=== PATIENT | male | born 1970 | race Caucasian/White ===

== ENCOUNTER 2017-04-30 11:16 | Outpatient (CLI) | payer OTHER ==
[~2017-04-30] VITALS: Ht 185.4 cm; Wt 113.4 kg
[~2017-04-30 11:16] MED LIST: ANASTROZOLE1 MG PO; AVODART0.5 MG PO; FLOMAX0.4 MG PO
== END 2017-04-30 12:15 | disposition home or self-care (01) ==
LOC: D.OPS 11:16 → D.SDCHOLD 11:16 → D.OPS 11:16 → D.SDCHOLD 12:15 → D.PAN 12:50 → D.OPS 13:00 → D.PAN 13:00 → D.OPS 13:30 → EDSTATUS 13:30
DX: Z01.810 Encounter for preprocedural cardiovascular examination (principal); Z01.812 Encounter for preprocedural laboratory examination; Z01.811 Encounter for preprocedural respiratory examination; Z53.9 Procedure and treatment not carried out, unspecified reason

== ENCOUNTER 2017-05-11 08:17 | Day surgery (SDC) | payer OTHER ==
[~2017-05-11] VITALS: Ht 185.4 cm; Wt 113.4 kg
--- NOTE | ~2017-05-11 | OP ---
PATIENT NAME: COREY NGUYEN MEDICAL RECORD: [id number] :72 LOCATION:[facility] ADMISSION DATE: SURGEON: CAMRON LUQUE DO DATE OF OPERATION: 05/11/2017 PROCEDURE PERFORMED: Left elbow common extensor tendon repair. PREOPERATIVE DIAGNOSIS: Left elbow common extensor tendon tear. POSTOPERATIVE DIAGNOSIS: Left elbow common extensor tendon tear. INDICATIONS: Mr. Nguyen is a 47-year-old male who was bench pressing approximately 475 pounds and felt a pop in his left elbow. He tried injections and a tennis elbow brace, which did not work, ended up getting an MRI, which showed almost complete tear of the extensor tendon, insertion at the lateral epicondyle. We had a long discussion with him and he decided that he wanted to get it fixed. I told him that he would not be able to lift weights for quite some time, 6-12 weeks, most likely 12 due to the amount of weight that he lifts that he will be in a splint for weeks in order to take tension off that repair. He was okay with that and the risks and benefits including infection, bleeding, need for further surgery, damage to nerves, especially the radial nerve and he was okay with that and consented to the procedure. SURGEON: Camron Luque DO TOURNIQUET TIME: 46 minutes. DESCRIPTION OF PROCEDURE: The patient did receive a block in the preoperative area by anesthesia and taken to the operative suite, laid in supine position. The left arm was prepped and draped with a tourniquet above the elbow under the drapes and the incision was marked out over the lateral epicondyle extending distally. Once this was done, the left upper extremity was exsanguinated. The patient had been given Ancef 2 grams. Time-out was performed prior to this and everyone was in agreement with correct side, site and patient. The left upper extremity was exsanguinated and tourniquet was inflated to 250 mmHg for 46 minutes total and then the Esmarch was taken off the arm and incision began. Careful dissection was made down to the lateral epicondyle and through the common extensor tendon mass, which was seen to be taken off, ruptured off, the lateral epicondyle. Some of the capsule was torn as well. This was repaired with 0 Vicryl and then the JuggerKnot 1.4 mm anchor was used with a suture, was put in just on the anterior portion and then the common extensor tendon had been ripped off, was sutured up in a Krackow stitch and then backed down with both limbs of the suture having 4 good secure suture lines in the common extensor tendon and then was brought back down with a knotless anchor, 4.5 PEEK anchor, just posterior to the JuggerKnot and that was placed. This was put down and the bone had nice tight repair with common extensor tendon there and the sutures were sutured back to some of the soft tissue and over to cover the repair and then cut. Then, 0 Vicryl was used to close more the soft tissue over that repair and then tourniquet was let down and the wound was irrigated. Any bleeders were coagulated at that time and then the skin was closed with 3-0 Vicryl in inverted interrupted fashion and 4-0 Monocryl was ran on the skin in a subcuticular running stitch and Steri-Strips were placed over the wound. Adaptic, 4 x 4s were placed over the elbow with Kerlix and then Jimbo wrap was wrapped on the left upper extremity up above the elbow and the patient was placed in a cock-up wrist splint and awakened and taken to recovery in stable OPERATIVE REPORT [id number] COREY NGUYEN condition. COMPLICATIONS: None. BLOOD LOSS: Minimal. TRANSINT:[id number] Voice Confirmation ID: [id number] DOCUMENT ID: [id number] CAMRON LUQUE DO at 1422 CC: [id number] DICTATION DATE: 05/11/17 1121 RN PRIVATE DUTY: 05/11/17 1148 [facility] 05/11/17 [id number] [place] [address]
[2017-05-11 08:48] VITALS: BP 148/93; Ht 185.4 cm; Wt 113.4 kg
[2017-05-11] MEDS ORDERED: DURICEF500 MG PO (11:15)
[2017-05-11] MEDS ORDERED: PERCOCET 7.5/321 TAB PO (11:15)
== END 2017-05-11 13:02 | disposition home or self-care (01) ==
LOC: D.OPS 08:17 → D.PAN 09:30 → D.OPS 09:30
DX: S56.512A Strain of other extensor muscle, fascia and tendon at forearm level, left arm, initial encounter (principal); X58.XXXA Exposure to other specified factors, initial encounter; Y93.B3 Activity, free weights

== ENCOUNTER → 2017-08-04 14:30 | Outpatient (CLI) | payer OTHER ==
[2017-05-11 08:48] VITALS: BMI 33.0
[~2017-08-04 14:30] MED LIST changes: +DURICEF500 MG PO; +PERCOCET 7.5/321 TAB PO
== END | disposition home or self-care (01) ==
LOC: D.MRI 14:30
DX: M54.12 Radiculopathy, cervical region (principal)

== ENCOUNTER → 2018-08-31 07:33 | Outpatient (CLI) | payer OTHER ==
[2017-05-11 08:48] VITALS: BMI 33.0
== END | disposition home or self-care (01) ==
LOC: D.US 08-24 11:00
PROVIDERS: ATTEND Surgery
DX: I83.891 Varicose veins of right lower extremity with other complications (principal)

== ENCOUNTER → 2020-07-12 10:15 | Outpatient (CLI) | payer BC ==
[2017-05-11 08:48] VITALS: BMI 33.0
== END | disposition home or self-care (01) ==
LOC: D.MRI 10:15
PROVIDERS: ATTEND Orthopaedic Surgery
DX: M23.306 Other meniscus derangements, unspecified meniscus, right knee (principal); M23.307 Other meniscus derangements, unspecified meniscus, left knee